=== PATIENT | female | born 1975 | race Caucasian/White ===

== ENCOUNTER → 2016-03-17 | Outpatient (REF) | payer OTHER ==
[~2016-03-17] MED LIST: AMBI5TAB PO; BIOT50004 PO; BUPR100T3 PO; CLON1TAB PO; COLA100C PO; ESTR625TA PO; FLUO40CA PO; MELA5TAB14 PO; OXYC1TAB23 PO; OXYC20TA21 PO; PRAZ2CAP PO; PROZ20CA11 PO; ROBISYP PO; TYLE325T5 PO; VYVA70CA3 PO; WELL100T PO
== END ==
LOC: M SFHCLERA 13:38
PROVIDERS: ATTEND Family Medicine
DX: G89.4 Chronic pain syndrome (principal)

== ENCOUNTER → 2016-04-16 | Outpatient (CLI) | payer OTHER, MEDICAID ==
--- NOTE | 2016-04-16 17:08 | REP ---
LEFT SHOULDER SERIES: Four views of the left shoulder are performed. There is no acute fracture or dislocation. There is mild narrowing and spurring at the acromioclavicular joint. No other abnormalities are seen. IMPRESSION: Mild degenerative changes acromioclavicular joint. Further evaluation may be made with MRI if clinically indicated. Signed by Nathan Gomez MD 04/17/2016 06:29 P
== END ==
LOC: M LRY 15:51
PROVIDERS: ATTEND Family Medicine
DX: M25.512 Pain in left shoulder (principal); M19.012 Primary osteoarthritis, left shoulder